=== PATIENT | female | born 1995 | race Caucasian/White ===

== ENCOUNTER 2016-10-16 00:40 | Emergency (ER) | payer SELFPAY ==
[~2016-10-16] VITALS: Ht 170.2 cm; Wt 53.0 kg
[2016-10-16 01:58] LABS: ASPARTATE AMINO TRANSFERASE 11 U/L (15-37); BLOOD UREA NITROGEN 17 mg/dL (7-18)
[2016-10-16] MEDS ORDERED: LORazepam 2 MG/ML, 1ML IVPush ONE (02:00)
[2016-10-16 02:04] LABS: DAU SCREEN DISCLAIMER
[2016-10-16] MEDS ORDERED: LORazepam 2 MG/ML, 1ML ONE (02:06)
[2016-10-16 03:59] VITALS: BP 132/76
== END 2016-10-16 04:08 | disposition home or self-care (01) ==
LOC: ED 02:39
DX: F31.9 Bipolar disorder, unspecified (principal); Z91.14 Patient's other noncompliance with medication regimen; F14.10 Cocaine abuse, uncomplicated
CPT/HCPCS: 36415; 70450; 80053; 80307; 81001; 84703; 85025; 87086; 96374; 99285; J2060